=== PATIENT | female | born 1965 | race Caucasian/White ===

== ENCOUNTER 2021-06-11 05:22 | Inpatient (IN) ==
[2021-06-09 12:42] LABS: Basophils # 0.1 10*3/uL (0.0-0.2); Basophils % 0.6 % (0.0-0.8); Eosinophils # 0.2 10*3/uL (0.0-0.87); Hematocrit 41.2 VOL% (35.7-47.0); Hemoglobin 12.7 GM/DL (12.0-16.0); Immature Granulocytes % 0.3 %; Immature Granulocytes Absolute 0.03 #; Lymphocytes # 1.8 10*3/uL (1.4-4.0); Lymphocytes % 20.3 % (21.3-54.2); Mean Corpuscular HGB Conc 30.8 GM/DL (32-36); Mean Platelet Volume 10.8 FL (9.6-12.0); Neutrophils % 69.8 % (38.7-73.9); Platelet Count 211 T/CUMM (130-400); Red Blood Count 4.48 MC/CUMM (3.8-5.5); Red Cell Distribution Width 13.2 % (9.3-17.3); White Blood Count 8.7 T/CUMM (4-12)
[2021-06-09 13:09] LABS: Albumin 3.9 G/DL (3.4-5.0); Bilirubin,Total 1.7 MG/DL (0.20-1.00); Calcium 8.9 MG/DL (8.5-10.1); Osmolality,Calculated 285.1 MOS/KG (273-304); Potassium 4.2 MMOL/L (3.5-5.1)
[2021-06-11] MEDS ORDERED: FAMOTIDINE 20 MG TABLET PO ONE (06:00)
[2021-06-11] MEDS ORDERED: GABAPENTIN 400 MG CAPSULE PO ONE (06:00)
[2021-06-11] MEDS ORDERED: ACETAMINOPHEN 500 MG TABLET PO ONE (06:00)
[2021-06-11] MEDS ORDERED: cefTRIAXone 1,000 MG in SODIUM CHLORIDE 0.9% 100 ML IV ONE (06:00)
[2021-06-11] MEDS ORDERED: DIAZEPAM 5 MG TABLET PO ONE (06:00)
[2021-06-11 06:43] LABS: INR 1.5; PT Patient Result 16.2 SECS (10.5-12.0)
[2021-06-11] MEDS ORDERED: LACTATED RINGERS 1,000 ML IV SCH (07:00)
[2021-06-11] MEDS ORDERED: fentaNYL 100 MCG/2 ML VIAL ONE (07:22)
[2021-06-11] MEDS ORDERED: MIDAZOLAM 2 MG/2 ML VIAL ONE (07:22)
[2021-06-11] MEDS ORDERED: SEVOFLURANE 1 UNIT/15 MINUTE INH ONE (07:43)
[2021-06-11] MEDS ORDERED: LIDOCAINE 2% 5 ML VIAL ONE (07:43)
[2021-06-11] MEDS ORDERED: ePHEDrine 50 MG/ML VIAL ONE (07:43)
[2021-06-11] MEDS ORDERED: propofoL 200 MG/20 ML VIAL IV ONE (07:43)
[2021-06-11] MEDS ORDERED: GLYCOPYRROLATE 0.4 MG/2 ML VIAL ONE (07:47)
[2021-06-11] MEDS ORDERED: MEPERIDINE 25 MG/1 ML VIAL ONE (10:38)
[2021-06-11] MEDS ORDERED: METOPROLOL TARTRATE 5 MG/5 ML VIAL IV ONE (10:48)
[2021-06-11 11:17] LABS: Basophils % 0.8 % (0.0-0.8); Eosinophils % 0.4 % (0.00-10.9); Hematocrit 43.5 VOL% (35.7-47.0); Hemoglobin 13.2 GM/DL (12.0-16.0); Immature Granulocytes % 0.4 %; Immature Granulocytes Absolute 0.01 #; Lymphocytes # 0.5 10*3/uL (1.4-4.0); Lymphocytes % 21.4 % (21.3-54.2); Mean Corpuscular HGB Conc 30.3 GM/DL (32-36); Mean Corpuscular Volume 96.2 FL (87-102); Mean Platelet Volume 10.8 FL (9.6-12.0); Monocytes % 1.2 % (1.7-12.7); Neutrophils % 75.8 % (38.7-73.9); Platelet Count 173 T/CUMM (130-400); Red Blood Count 4.52 MC/CUMM (3.8-5.5); Red Cell Distribution Width 13.3 % (9.3-17.3); White Blood Count 2.5 T/CUMM (4-12)
[2021-06-11] MEDS ORDERED: ONDANSETRON 4 MG/2 ML VIAL IV PRN (11:17)
[2021-06-11] MEDS ORDERED: GLUCAGON 1 MG VIAL IM PRN (11:17)
[2021-06-11] MEDS ORDERED: DEXTROSE 50% 25 GM/50 ML VIAL IV PRN (11:17)
[2021-06-11] MEDS ORDERED: OXYBUTYNIN 5 MG TABLET PO PRN (11:21)
[2021-06-11 11:33] LABS: Albumin 3.6 G/DL (3.4-5.0); Bilirubin,Total 0.4 MG/DL (0.20-1.00); Osmolality,Calculated 281.3 MOS/KG (273-304); Total Protein 7.1 G/DL (6.4-8.2)
[2021-06-11 11:42] LABS: Band Neutrophils 12 % (0-10); Eosinophils 3 % (0-10); Lymphocytes 23 % (20-55); Segmented Neutrophils 60 % (50-85); Total Cells Counted 100
[2021-06-11 11:43] LABS: Hypochromasia 1+; Microcytosis 1+; Ovalocytes Slight
[2021-06-11 11:58] LABS: Thyroid Stimulating Hormone 1.83 uIU/ml (0.358-3.74)
[2021-06-11] MEDS ORDERED: METOPROLOL TARTRATE 25 MG TABLET ONE (12:22)
[2021-06-11] MEDS: METOPROLOL TARTRATE 25 MG TABLET PO SCH ×2 (12:28→23:27)
[2021-06-11] MEDS ORDERED: METOPROLOL TARTRATE 5 MG/5 ML VIAL IV STA (12:43)
[2021-06-11] MEDS ORDERED: ACETAMINOPHEN 325 MG TABLET PO STA (13:45)
[2021-06-11] MEDS: SERTRALINE 25 MG TABLET PO SCH (15:21)
[2021-06-11] MEDS: PANTOPRAZOLE 40 MG TABLET PO SCH (15:21)
[2021-06-11] MEDS: SODIUM CHLORIDE 0.9% 1,000 ML IV SCH ×3 (15:35→23:57)
[2021-06-11] MEDS: WARFARIN 7.5 MG TABLET PO SCH (17:37)
[2021-06-11] MEDS: ROSUVASTATIN 10 MG TABLET PO SCH (20:23)
[2021-06-11] MEDS: ACETAMINOPHEN 325 MG TABLET PO PRN (20:23)
[2021-06-12] MEDS: SODIUM CHLORIDE 0.9% 1,000 ML IV SCH (03:21)
[2021-06-12] MEDS: ACETAMINOPHEN 325 MG TABLET PO PRN ×3 (04:03→17:48)
[2021-06-12 05:22] LABS: Basophils # 0.1 10*3/uL (0.0-0.2); Basophils % 0.4 % (0.0-0.8); Eosinophils % 0.1 % (0.00-10.9); Hematocrit 35.7 VOL% (35.7-47.0); Hemoglobin 11.1 GM/DL (12.0-16.0); Immature Granulocytes % 0.4 %; Immature Granulocytes Absolute 0.05 #; Lymphocytes # 0.3 10*3/uL (1.4-4.0); Lymphocytes % 2.1 % (21.3-54.2); Mean Corpuscular HGB Conc 31.1 GM/DL (32-36); Mean Corpuscular Volume 93.2 FL (87-102); Mean Platelet Volume 10.9 FL (9.6-12.0); Monocytes % 2.7 % (1.7-12.7); Neutrophils % 94.3 % (38.7-73.9); Platelet Count 126 T/CUMM (130-400); Red Blood Count 3.83 MC/CUMM (3.8-5.5); Red Cell Distribution Width 13.9 % (9.3-17.3); White Blood Count 13.8 T/CUMM (4-12)
[2021-06-12 05:31] LABS: INR 1.5; PT Patient Result 16.8 SECS (10.5-12.0)
[2021-06-12 05:53] LABS: Albumin 2.9 G/DL (3.4-5.0); Bilirubin,Total 0.7 MG/DL (0.20-1.00); Calcium 8.3 MG/DL (8.5-10.1); Osmolality,Calculated 280.5 MOS/KG (273-304); Potassium 3.6 MMOL/L (3.5-5.1); Total Protein 5.9 G/DL (6.4-8.2)
[2021-06-12 07:31] LABS: Band Neutrophils 28 % (0-10); Eosinophils 1 % (0-10); Lymphocytes 2 % (20-55); Platelet Estimate Adequate; Segmented Neutrophils 66 % (50-85); Total Cells Counted 100
[2021-06-12 07:32] LABS: Anisocytosis Slight
[2021-06-12] MEDS: cefTRIAXone 1,000 MG in SODIUM CHLORIDE 0.9% 100 ML IV SCH (09:58)
[2021-06-12] MEDS: SERTRALINE 25 MG TABLET PO SCH (10:03)
[2021-06-12] MEDS: PANTOPRAZOLE 40 MG TABLET PO SCH (10:03)
[2021-06-12] MEDS: METOPROLOL TARTRATE 25 MG TABLET PO SCH ×2 (10:03→20:27)
[2021-06-12 10:50] LABS: Bilirubin,Urine Negative (Negative); Blood, Urine Large mg/dL (Negative); Glucose,Urine (UA) Negative (Negative); Ketones,Urine Negative (Negative); Mucus,Urine Occasional /LPF (Occasional); Nitrite,Urine Negative (Negative); Protein,Urine 100 MG/DL; RBC,Urine 4362 /HPF (0-4); Squamous Epithelial Cell,Urine Occasional /HPF (0-10); Urine Appearance Slightly Hazy (Clear); Urine Color Red (Yellow); Urine Specific Gravity 1.012 (1.001-1.035); Urine Urobilinogen < 2.0 EU/DL (0.2-1.0)
[2021-06-12] MEDS ORDERED: POTASSIUM CHLORIDE 20 MEQ TABLET PO ONE (11:24)
[2021-06-12] MEDS: WARFARIN 7.5 MG TABLET PO SCH (17:24)
[2021-06-12] MEDS: VANCOMYCIN INJ 1,500 MG in SODIUM CHLORIDE 0.9% 500 ML IV SCH (18:06)
[2021-06-12] MEDS: ROSUVASTATIN 10 MG TABLET PO SCH (20:27)
[2021-06-13 05:14] LABS: Basophils % 0.3 % (0.0-0.8); Eosinophils # 0.2 10*3/uL (0.0-0.87); Eosinophils % 1.7 % (0.00-10.9); Hematocrit 33.8 VOL% (35.7-47.0); Hemoglobin 10.7 GM/DL (12.0-16.0); Immature Granulocytes % 0.6 %; Immature Granulocytes Absolute 0.06 #; Lymphocytes # 0.8 10*3/uL (1.4-4.0); Lymphocytes % 8.8 % (21.3-54.2); Mean Corpuscular HGB Conc 31.7 GM/DL (32-36); Mean Corpuscular Volume 92.9 FL (87-102); Mean Platelet Volume 10.9 FL (9.6-12.0); Monocytes % 4.5 % (1.7-12.7); Neutrophils % 84.1 % (38.7-73.9); Platelet Count 121 T/CUMM (130-400); Red Blood Count 3.64 MC/CUMM (3.8-5.5); Red Cell Distribution Width 13.6 % (9.3-17.3); White Blood Count 9.5 T/CUMM (4-12)
[2021-06-13 05:19] LABS: INR 1.6
[2021-06-13] MEDS: VANCOMYCIN INJ 1,500 MG in SODIUM CHLORIDE 0.9% 500 ML IV SCH (05:28)
[2021-06-13 05:41] LABS: Albumin 2.7 G/DL (3.4-5.0); Bilirubin,Total 1.4 MG/DL (0.20-1.00); Calcium 8.4 MG/DL (8.5-10.1); Osmolality,Calculated 279.4 MOS/KG (273-304); Potassium 3.8 MMOL/L (3.5-5.1); Total Protein 5.9 G/DL (6.4-8.2)
[2021-06-13] MEDS: METOPROLOL TARTRATE 25 MG TABLET PO SCH (09:05)
[2021-06-13] MEDS: SERTRALINE 25 MG TABLET PO SCH (09:05)
[2021-06-13] MEDS: PANTOPRAZOLE 40 MG TABLET PO SCH (09:05)
[2021-06-13] MEDS: cefTRIAXone 1,000 MG in SODIUM CHLORIDE 0.9% 100 ML IV SCH (09:29)
[2021-06-13 13:04] VITALS: BP 118/79
[2021-06-13] MEDS ORDERED: ASCORBIC ACID 500 MG TABLET PO SCH (21:00)
[2021-06-13] MEDS ORDERED: METOPROLOL TARTRATE 25 MG TABLET PO SCH (21:00)
== END 2021-06-13 12:40 | disposition home or self-care (01) | DRG 853 ==
LOC: SUATTDRO → N.OR 05:22 → N.SDSINP 05:26 → N.TELEN 15:03
PROVIDERS: ADMIT Internal Medicine; ATTEND Internal Medicine

== ENCOUNTER 2022-02-08 12:21 | Inpatient (IN) ==
[2022-02-08 14:30] LABS: Basophils % 0.2 % (0.0-0.8); Eosinophils % 0.2 % (0.00-10.9); Hematocrit 39.5 VOL% (35.7-47.0); Immature Granulocytes % 0.5 %; Immature Granulocytes Absolute 0.08 #; Lymphocytes # 0.6 10*3/uL (1.4-4.0); Lymphocytes % 3.4 % (21.3-54.2); Mean Corpuscular HGB Conc 30.4 GM/DL (32-36); Mean Corpuscular Volume 89.6 FL (87-102); Mean Platelet Volume 11.2 FL (9.6-12.0); Monocytes # 1.2 10*3/uL (0.11-0.8); Monocytes % 7.4 % (1.7-12.7); Neutrophils % 88.3 % (38.7-73.9); Platelet Count 188 T/CUMM (130-400); Red Blood Count 4.41 MC/CUMM (3.8-5.5); Red Cell Distribution Width 14.9 % (9.3-17.3); White Blood Count 16.6 T/CUMM (4-12)
[2022-02-08 14:48] LABS: Albumin 3.6 G/DL (3.4-5.0); Bilirubin,Total 1.5 MG/DL (0.20-1.00); Calcium 8.6 MG/DL (8.5-10.1); Osmolality,Calculated 278.5 MOS/KG (273-304); Potassium 4.1 MMOL/L (3.5-5.1)
[2022-02-08 14:50] LABS: Mucus,Urine Occasional /LPF (Occasional); RBC,Urine 33 /HPF (0-4); Squamous Epithelial Cell,Urine Occasional /HPF (0-10)
[2022-02-08 14:52] LABS: Urine Appearance Slightly Cloudy (Clear); Urine Color Yellow (Yellow); Urine Specific Gravity 1.015 (1.001-1.035)
[2022-02-08 14:53] LABS: Bilirubin,Urine Negative (Negative); Blood, Urine Large mg/dL (Negative); Glucose,Urine (UA) Negative (Negative); Ketones,Urine Negative (Negative); Nitrite,Urine Negative (Negative); Protein,Urine 100 mg/dL (Negative); Urine Urobilinogen 0.2 eU/dL (<2.0)
[2022-02-08 15:31] LABS: Band Neutrophils 3 % (0-10); Lymphocytes 2 % (20-55)
[2022-02-08 15:32] LABS: Platelet Estimate Normal; Total Cells Counted 100
[2022-02-08] MEDS ORDERED: cefTRIAXone 1,000 MG in SODIUM CHLORIDE 0.9% 100 ML IV STA (17:22)
[2022-02-08] MEDS ORDERED: HYDROmorphone 1 MG/1 ML SYRINGE IV STA (17:22)
[2022-02-08] MEDS ORDERED: SODIUM CHLORIDE 0.9% 1,000 ML IV STA (17:22)
[2022-02-08] MEDS ORDERED: ONDANSETRON 4 MG/2 ML VIAL IV STA (17:22)
[2022-02-08] MEDS ORDERED: GLUCAGON 1 MG VIAL IM PRN (19:10)
[2022-02-08] MEDS ORDERED: ONDANSETRON 4 MG/2 ML VIAL IV PRN (19:10)
[2022-02-08] MEDS ORDERED: MORPHINE 2 MG/1 ML SYRINGE IV PRN (19:10)
[2022-02-08] MEDS ORDERED: ACETAMINOPHEN 325 MG TABLET PO PRN (19:10)
[2022-02-08] MEDS ORDERED: DEXTROSE 10% 250 ML BAG IV PRN (19:18)
[2022-02-08] MEDS ORDERED: oxyCODONE/ACETAMINOPHEN 5-325 MG TABLET PO PRN (19:28)
[2022-02-08] MEDS ORDERED: KETOROLAC 30 MG/1 ML VIAL IV PRN (19:29)
[2022-02-08] MEDS: LACTATED RINGERS 1,000 ML IV SCH (21:00)
[2022-02-08] MEDS ORDERED: cefTRIAXone 2,000 MG in SODIUM CHLORIDE 0.9% 100 ML IV SCH (21:00)
[2022-02-08] MEDS ORDERED: ENOXAPARIN 40 MG/0.4 ML SYRINGE SUBCUT SCH (21:00)
[2022-02-08] MEDS: METOPROLOL TARTRATE 25 MG TABLET PO SCH (21:14)
[2022-02-08 21:27] LABS: INR 1.6; PT Patient Result 16.7 SECS (10.5-12.0)
[2022-02-08] MEDS ORDERED: WARFARIN 5 MG TABLET PO SCH (21:30)
[2022-02-09 05:09] LABS: Basophils % 0.3 % (0.0-0.8); Eosinophils # 0.1 10*3/uL (0.0-0.87); Eosinophils % 0.6 % (0.00-10.9); Hematocrit 35.5 VOL% (35.7-47.0); Hemoglobin 10.8 GM/DL (12.0-16.0); Immature Granulocytes Absolute 0.12 #; Lymphocytes # 0.9 10*3/uL (1.4-4.0); Lymphocytes % 7.2 % (21.3-54.2); Mean Corpuscular HGB Conc 30.4 GM/DL (32-36); Mean Corpuscular Volume 89.9 FL (87-102); Mean Platelet Volume 10.8 FL (9.6-12.0); Monocytes # 1.1 10*3/uL (0.11-0.8); Monocytes % 9.5 % (1.7-12.7); Neutrophils % 81.4 % (38.7-73.9); Platelet Count 156 T/CUMM (130-400); Red Blood Count 3.95 MC/CUMM (3.8-5.5); Red Cell Distribution Width 15.1 % (9.3-17.3); White Blood Count 11.9 T/CUMM (4-12)
[2022-02-09 05:15] LABS: INR 1.5
[2022-02-09 05:27] LABS: Calcium 8.5 MG/DL (8.5-10.1); Osmolality,Calculated 274.7 MOS/KG (273-304); Potassium 4.3 MMOL/L (3.5-5.1)
[2022-02-09] MEDS ORDERED: PANTOPRAZOLE 40 MG TABLET PO SCH (06:00)
[2022-02-09] MEDS: METOPROLOL TARTRATE 25 MG TABLET PO SCH (08:52)
[2022-02-09] MEDS ORDERED: ROSUVASTATIN 10 MG TABLET PO SCH (09:00)
[2022-02-09] MEDS ORDERED: SERTRALINE 25 MG TABLET PO SCH (09:00)
[2022-02-09] MEDS: LACTATED RINGERS 1,000 ML IV SCH ×2 (11:17→15:47)
[2022-02-09 14:06] VITALS: BP 101/42
[2022-02-09] MEDS ORDERED: CEFUROXIME 500 MG TABLET PO SCH (17:00)
[2022-02-11] MEDS ORDERED: WARFARIN 5 MG TABLET PO SCH (21:30)
== END 2022-02-09 15:20 | disposition home or self-care (01) | DRG 690 ==
LOC: N.ED 12:21 → N.EDINP 19:10 → N.3E 20:40
PROVIDERS: ADMIT Internal Medicine; ATTEND Internal Medicine

== ENCOUNTER 2022-04-01 09:44 | Observation (INO) ==
[~2022-04-01 09:44] MED LIST: cefTRIAXone 1,000 MG in SODIUM CHLORIDE 0.9% 100 ML IV ONE
[2022-04-01 10:13] LABS: Basophils # 0.1 10*3/uL (0.0-0.2); Basophils % 0.6 % (0.0-0.8); Eosinophils # 0.1 10*3/uL (0.0-0.87); Eosinophils % 1.6 % (0.00-10.9); Hematocrit 39.1 VOL% (35.7-47.0); Hemoglobin 12.1 GM/DL (12.0-16.0); Immature Granulocytes % 0.3 %; Immature Granulocytes Absolute 0.03 #; Lymphocytes # 1.4 10*3/uL (1.4-4.0); Lymphocytes % 15.9 % (21.3-54.2); Mean Corpuscular HGB Conc 30.9 GM/DL (32-36); Mean Corpuscular Volume 87.7 FL (87-102); Mean Platelet Volume 11.3 FL (9.6-12.0); Monocytes # 0.5 10*3/uL (0.11-0.8); Monocytes % 6.1 % (1.7-12.7); Neutrophils % 75.5 % (38.7-73.9); Platelet Count 178 T/CUMM (130-400); Red Blood Count 4.46 MC/CUMM (3.8-5.5); Red Cell Distribution Width 15.6 % (9.3-17.3); White Blood Count 8.6 T/CUMM (4-12)
[2022-04-01 10:21] LABS: PT Patient Result 11.4 SECS (10.1-12.1)
[2022-04-01] MEDS ORDERED: FAMOTIDINE 20 MG TABLET PO ONE (10:21)
[2022-04-01] MEDS ORDERED: DIAZEPAM 5 MG TABLET PO ONE (10:21)
[2022-04-01] MEDS: LACTATED RINGERS 1,000 ML IV SCH ×2 (10:37→12:30)
[2022-04-01 11:10] LABS: Albumin 3.2 G/DL (3.4-5.0); Bilirubin,Total 0.6 MG/DL (0.20-1.00); Calcium 8.4 MG/DL (8.5-10.1); Osmolality,Calculated 287.7 MOS/KG (273-304); Potassium 3.9 MMOL/L (3.5-5.1); Total Protein 6.3 G/DL (6.4-8.2)
[2022-04-01] MEDS ORDERED: ROCURONIUM 50 MG/5 ML VIAL IV ONE (11:44)
[2022-04-01] MEDS ORDERED: propofoL 200 MG/20 ML VIAL IV ONE (11:44)
[2022-04-01] MEDS ORDERED: ONDANSETRON 4 MG/2 ML VIAL ONE ×2 (11:44→14:48)
[2022-04-01] MEDS ORDERED: ETOMIDATE 40 MG/20 ML VIAL IV ONE (11:44)
[2022-04-01] MEDS ORDERED: LIDOCAINE 2% 5 ML VIAL ONE (11:44)
[2022-04-01] MEDS ORDERED: SEVOFLURANE 1 UNIT/15 MINUTE INH ONE (11:44)
[2022-04-01] MEDS ORDERED: MIDAZOLAM 2 MG/2 ML VIAL ONE (11:46)
[2022-04-01] MEDS ORDERED: fentaNYL 100 MCG/2 ML VIAL ONE (11:46)
[2022-04-01] MEDS ORDERED: GLYCOPYRROLATE 0.4 MG/2 ML VIAL ONE (12:57)
[2022-04-01] MEDS ORDERED: ONDANSETRON 4 MG/2 ML VIAL IV PRN ×3 (14:52→15:59)
[2022-04-01] MEDS ORDERED: AMISULPRIDE 10 MG/4 ML VIAL IV ONE ×2 (15:08→15:11)
[2022-04-01] MEDS ORDERED: oxyCODONE/ACETAMINOPHEN 5-325 MG TABLET PO PRN (15:30)
[2022-04-01] MEDS ORDERED: SIMETHICONE CHEW 125 MG TABLET PO PRN (15:30)
[2022-04-01] MEDS ORDERED: HYDROmorphone 1 MG/1 ML SYRINGE IV PRN (15:30)
[2022-04-01] MEDS ORDERED: diphenhydrAMINE 50 MG/1 ML VIAL IV PRN (15:30)
[2022-04-01] MEDS ORDERED: PROMETHAZINE 25 MG/1 ML VIAL IM PRN (15:30)
[2022-04-01] MEDS: HYDROmorphone 1 MG/1 ML SYRINGE IV PRN ×2 (15:50→16:25)
[2022-04-01 16:39] LABS: Basophils % 0.3 % (0.0-0.8); Eosinophils # 0.1 10*3/uL (0.0-0.87); Hematocrit 39.4 VOL% (35.7-47.0); Immature Granulocytes % 0.4 %; Immature Granulocytes Absolute 0.05 #; Lymphocytes # 1.2 10*3/uL (1.4-4.0); Lymphocytes % 10.3 % (21.3-54.2); Mean Corpuscular HGB Conc 30.5 GM/DL (32-36); Mean Corpuscular Volume 88.7 FL (87-102); Mean Platelet Volume 10.8 FL (9.6-12.0); Monocytes # 0.6 10*3/uL (0.11-0.8); Monocytes % 5.2 % (1.7-12.7); Neutrophils % 82.8 % (38.7-73.9); Platelet Count 187 T/CUMM (130-400); Red Blood Count 4.44 MC/CUMM (3.8-5.5); Red Cell Distribution Width 15.5 % (9.3-17.3); White Blood Count 11.5 T/CUMM (4-12)
[2022-04-01 16:49] LABS: PT Patient Result 11.4 SECS (10.1-12.1)
[2022-04-01 17:01] LABS: Calcium 8.4 MG/DL (8.5-10.1); Osmolality,Calculated 277.5 MOS/KG (273-304); Potassium 3.7 MMOL/L (3.5-5.1)
[2022-04-01] MEDS: ACETAMINOPHEN 325 MG TABLET PO SCH ×2 (17:12→21:24)
[2022-04-01] MEDS: SODIUM CHLORIDE 0.9% 1,000 ML IV SCH (17:13)
[2022-04-01] MEDS ORDERED: hydrALAZINE 20 MG/1 ML VIAL IV PRN (17:56)
[2022-04-01] MEDS ORDERED: METOPROLOL TARTRATE 50 MG TABLET PO SCH (21:00)
[2022-04-01] MEDS ORDERED: ROSUVASTATIN 10 MG TABLET PO SCH (21:00)
[2022-04-01] MEDS ORDERED: ASPIRIN EC 81 MG TABLET PO SCH (21:00)
[2022-04-01] MEDS ORDERED: SERTRALINE 25 MG TABLET PO SCH (21:00)
[2022-04-01] MEDS: LOSARTAN 25 MG TABLET PO SCH (21:24)
[2022-04-01] MEDS: DOCUSATE SODIUM 100 MG CAPSULE PO SCH (21:24)
[2022-04-02] MEDS: OXYBUTYNIN 5 MG TABLET PO PRN ×2 (00:19→09:58)
[2022-04-02] MEDS: SODIUM CHLORIDE 0.9% 1,000 ML IV SCH (03:30)
[2022-04-02] MEDS: ACETAMINOPHEN 325 MG TABLET PO SCH ×2 (04:39→09:44)
[2022-04-02 04:49] VITALS: BP 118/70
[2022-04-02 05:40] LABS: Basophils % 0.4 % (0.0-0.8); Eosinophils # 0.1 10*3/uL (0.0-0.87); Eosinophils % 1.4 % (0.00-10.9); Hematocrit 34.5 VOL% (35.7-47.0); Hemoglobin 10.4 GM/DL (12.0-16.0); Immature Granulocytes % 0.4 %; Immature Granulocytes Absolute 0.04 #; Lymphocytes % 10.8 % (21.3-54.2); Mean Corpuscular HGB Conc 30.1 GM/DL (32-36); Mean Corpuscular Volume 89.6 FL (87-102); Mean Platelet Volume 10.9 FL (9.6-12.0); Monocytes # 0.7 10*3/uL (0.11-0.8); Monocytes % 7.8 % (1.7-12.7); Neutrophils % 79.2 % (38.7-73.9); Platelet Count 148 T/CUMM (130-400); Red Blood Count 3.85 MC/CUMM (3.8-5.5); Red Cell Distribution Width 15.6 % (9.3-17.3)
[2022-04-02 05:43] LABS: Calcium 8.2 MG/DL (8.5-10.1); Osmolality,Calculated 283.1 MOS/KG (273-304)
[2022-04-02 05:48] LABS: PT Patient Result 11.4 SECS (10.1-12.1)
[2022-04-02] MEDS ORDERED: HEPARIN 5,000 UNIT/1 ML VIAL SUBCUT SCH (09:00)
[2022-04-02] MEDS: DOCUSATE SODIUM 100 MG CAPSULE PO SCH (09:43)
[2022-04-02] MEDS: LOSARTAN 25 MG TABLET PO SCH (09:44)
[2022-04-02] MEDS ORDERED: cefTRIAXone 1,000 MG in SODIUM CHLORIDE 0.9% 100 ML IV SCH (10:30)
== END 2022-04-02 11:28 | disposition home or self-care (01) ==
LOC: SUATTDRO → N.OR 09:44 → N.2W 09:44 → N.SDSINP 09:44 → EDSDCBED 17:03 → N.2W 17:03 → N.OR 04-02 11:28 → UNDODEPSDC 04-03 09:20
PROVIDERS: ADMIT Surgery; ATTEND Surgery